=== PATIENT | male | born 1955 | race Caucasian/White ===

== ENCOUNTER 2017-06-01 21:29 | Emergency (ER) | payer MEDICAID ==
[2017-06-01 21:37] VITALS: BP 149/61
[2017-06-01] MEDS ORDERED: GuaiFENesin DM* 5 ML UDC PO ONE (21:54)
[2017-06-01] MEDS ORDERED: guaiFENesin LIQ* 100 MG/5 ML UDC PO ONE (22:00)
[2017-06-01] MEDS ORDERED: guaiFENesin LIQ* 100 MG/5 ML UDC ONE ×2 (22:02)
--- NOTE | 2017-06-01 22:07 | UC ---
Respiratory Complaint HPI - HPI Summary HPI Summary: 62 year old male with history of HTN here for cough for two weeks. Reports dry cough, worse when he is indoors. Reports runny nose as well but no sinus congestion or headache. Denies any fever, chills, sob. No leg swelling, prolonged immobilization. No prior symptoms like this before. - History of Current Complaint Chief Complaint: UCRespiratory Stated Complaint: COUGH Time Seen by Provider: 06/01/17 21:47 Onset/Duration: Gradual Onset Timing: Intermittent Episodes Severity Currently: Mild Character: Cough: Nonproductive Alleviating Factors: OTC Meds Associated Signs And Symptoms: Positive: Negative - Risk Factors Pulmonary Embolism Risk Factors: Negative Cardiac Risk Factors: Hypertension Pseudomonas Risk Factors: Negative - Allergies/Home Medications Allergies/Adverse Reactions: Allergies Allergy/AdvReac Type Severity Reaction Status Date / Time BEES Allergy Hives Uncoded 06/01/17 21:37 PMH/Surg Hx/FS Hx/Imm Hx - Surgical History Surgical History: None - Social History Alcohol Use: None Substance Use Type: None Smoking Status (MU): Former Smoker Review of Systems Constitutional: Negative Skin: Negative Eyes: Negative ENT: Nasal Discharge Respiratory: Cough Cardiovascular: Negative Gastrointestinal: Negative Genitourinary: Negative Motor: Negative Neurovascular: Negative Musculoskeletal: Negative Neurological: Negative Psychological: Negative All Other Systems Reviewed And Are Negative: Yes Physical Exam Triage Information Reviewed: Yes Appearance: Well-Appearing, No Pain Distress Vital Signs: Initial Vital Signs Temp 36.1 C 06/01/17 21:34 Pulse 67 06/01/17 21:34 Resp 12 06/01/17 21:34 BP 149/61 06/01/17 21:34 Pulse Ox 98 06/01/17 21:34 Eye Exam: Normal ENT Exam: Normal Dental Exam: Normal Neck exam: Normal Neck: Positive: 1 Respiratory Exam: Normal Respiratory: Positive: Chest non-tender, Lungs clear, Normal breath sounds, No respiratory distress, No accessory muscle use Cardiovascular Exam: Normal Cardiovascular: Positive: RRR Abdominal Exam: Normal Musculoskeletal Exam: Normal Neurological Exam: Normal Psychological Exam: Normal Skin Exam: Normal UC Diagnostic Evaluation - Laboratory O2 Sat by Pulse Oximetry: 98 Respiratory Course/Dx - Course Course Of Treatment: Cough. OTC meds given. - Differential Dx/Diagnosis Differential Diagnosis/HQI/PQRI: Bronchitis, Laryngitis, Lower Resp Infection, Sinusitis Provider Diagnoses: Cough Discharge - Discharge Plan Condition: Good Disposition: HOME Prescriptions: Dextromethorphan-Guaifenesin [Guaifenesin/Dextromethorp 10-100 mg/5Ml] 5 ml PO Q6HR PRN #1 bottle PRN Reason: Cough Patient Education Materials: Guaifenesin (By mouth), Viral Syndrome (ED) Print Language: CZECH Referrals: Non Staff,Doctor [Primary Care Provider] - Additional Instructions: Take meds as prescribed. Use humidifier at night.
== END 2017-06-01 22:10 | disposition home or self-care (01) ==
LOC: UCEAST 21:29
DX: R05 Cough (principal)
CPT/HCPCS: 99212; A9270-GY; G0463

== ENCOUNTER 2019-02-25 08:45 | Day surgery (SDC) | payer MEDICAID ==
[~2019-02-25 08:45] MED LIST: Buffered Lidocaine 1% SYRIN* 1 ML/SYRINGE INTRADERM ONE
[2019-02-25] MEDS ORDERED: fentaNYL* 50 MCG/ML 2 ML VIAL (100 MCG VIAL) ONE ×2 (09:32)
[2019-02-25] MEDS ORDERED: Midazolam* 1 MG/ML 2 ML VIAL (2 MG) ONE ×2 (09:32)
[2019-02-25 10:37] VITALS: BP 125/68
--- NOTE | 2019-02-25 10:47 | OP ---
DATE OF OPERATION: 02/25/19 [facility] DATE OF : 53 SURGEON: Dr. Enrique Bello. DOCUMENTATION BILLING CLERK: None. ANESTHESIA: Topical with intravenous sedation. PRE-OP DIAGNOSIS: Cataract, right eye. POST-OP DIAGNOSIS: Cataract, right eye. OPERATIVE PROCEDURE: Phacoemulsification and cataract extraction with posterior chamber intraocular lens implant, right eye. COMPLICATIONS: None. BLOOD LOSS: None. DESCRIPTION OF PROCEDURE: The patient was brought to the operating room and received a small amount of intravenous sedation. A drop of Tetracaine was placed in his right eye. He was prepped and draped in the usual sterile fashion for ophthalmic surgery and attention was directed to the right eye where a speculum was placed. A paracentesis was created at the 11 o'clock position and 0.1 cc of 1 percent preservative-free Lidocaine was injected into the anterior chamber followed by DisCoVisc. The eye was digitally stabilized while a 2.75 mm keratome was used to create a triplanar clear corneal incision at the 9 o'clock position. A continuous curvilinear capsulorrhexis was created with a cystotome and Utrata forceps. BSS on a cannula was used to hydrodissect the lens from the capsule. Phacoemulsification was performed in a divide-and- conquer technique to create four fragments which were removed. Residual cortical material was removed with irrigation and aspiration. DisCoVisc was used to inflate the capsular bag and an AU00T0 23.0 diopter lens was folded and inserted into the capsular bag. DisCoVisc was removed using irrigation and aspiration. BSS on a cannula was used to hydrate the corneal stroma and seal the wound. At the end of the case the pupil was round and the lens was centered. The eye was of normal pressure and the wound was water tight. The speculum was removed and topical Maxitrol ointment was placed on the surface of the eye. The eye was closed, patched and shielded and the patient was sent to the recovery room in stable condition with post operative instructions and follow-up appointment given. [id number]/[facility] #: [id number] MTDGlenda
[2019-02-25] MEDS ORDERED: Lidocaine 1% MPF ** 5 ML VIAL ONE ×2 (10:58)
[2019-02-25] MEDS ORDERED: Tetracaine 0.5% OPTH.SOL 4 ML* 1 DROP BTL ONE ×2 (10:58)
[2019-02-25] MEDS ORDERED: Neomycin/Polymy/Dex OPHTH.OIN* 3.5 GM ONE ×2 (10:58)
[2019-02-25] MEDS ORDERED: Phenylephrine OPHTH SOL 2.5%* 2 ML ONE ×2 (10:58)
[2019-02-25] MEDS ORDERED: Phenylephr/Ketorolac 1%/0.3% OPH DROP BTL ONE ×2 (10:58)
[2019-02-25] MEDS ORDERED: Tropicamide 1% OPTH.SOL* BTL ONE ×2 (10:58)
[2019-02-25] MEDS ORDERED: Ketorolac 0.5% OPHTH (NF) 0.5 % 5 ML BTL ONE ×2 (10:58)
[2019-02-25] MEDS ORDERED: Cyclopentolate 1% OPTH.SOL* 2 ML BTL ONE ×2 (10:58)
== END 2019-02-25 10:33 | disposition home or self-care (01) ==
LOC: OREAST 08:45
PROVIDERS: ATTEND Ophthalmology
DX: H25.11 Age-related nuclear cataract, right eye (principal); J30.2 Other seasonal allergic rhinitis; E78.00 Pure hypercholesterolemia, unspecified; I10 Essential (primary) hypertension; Z87.891 Personal history of nicotine dependence; E78.5 Hyperlipidemia, unspecified; F03.90 Unspecified dementia, unspecified severity, without behavioral disturbance, psychotic disturbance, mood disturbance, and anxiety; G40.89 Other seizures
CPT/HCPCS: A9270-GY; C9447; J2250; J3010; V2632

== ENCOUNTER 2019-03-04 09:22 | Day surgery (SDC) | payer MEDICAID ==
[~2019-03-04 09:22] MED LIST changes: +Acetaminophen TAB* 325 MG PO PRN; +Cyclopentolate 1% OPTH.SOL* 2 ML BTL ONE; +Ketorolac 0.5% OPHTH (NF) 0.5 % 5 ML BTL ONE; +Lidocaine 1% MPF ** 5 ML VIAL ONE; +Neomycin/Polymy/Dex OPHTH.OIN* 3.5 GM ONE; +Phenylephrine OPHTH SOL 2.5%* 2 ML ONE; +Tetracaine 0.5% OPTH.SOL 4 ML* 1 DROP BTL ONE; +Tropicamide 1% OPTH.SOL* BTL ONE
[2019-03-04] MEDS ORDERED: Midazolam* 1 MG/ML 2 ML VIAL (2 MG) ONE ×2 (10:33)
[2019-03-04] MEDS ORDERED: fentaNYL* 50 MCG/ML 2 ML VIAL (100 MCG VIAL) ONE (10:33)
[2019-03-04 11:08] VITALS: BP 124/67
[2019-03-04] MEDS ORDERED: Phenylephr/Ketorolac 1%/0.3% OPH DROP BTL ONE ×2 (11:12)
--- NOTE | 2019-03-04 11:26 | OP ---
OPERATIVE REPORT: DATE OF OPERATION: 03/04/19 - [facility] DATE OF : 53 SURGEON: Dr. Enrique Bello. CORPORATION OFFICER: None. ANESTHESIA: Topical with intravenous sedation. PRE-OP DIAGNOSIS: Cataract, left eye. POST-OP DIAGNOSIS: Cataract, left eye. OPERATIVE PROCEDURE: Phacoemulsification and cataract extraction with posterior chamber intraocular lens implant, left eye. COMPLICATIONS: None. BLOOD LOSS: None. OPERATIVE FINDINGS: The patient was brought to the operating room and received a small amount of intravenous sedation. A drop of Tetracaine was placed in his left eye. He was prepped and draped in the usual sterile fashion for ophthalmic surgery and attention was directed to the left eye where a speculum was placed. A paracentesis was created at the 5 o'clock position and 0.1 cc of 1 percent preservative-free Lidocaine was injected into the anterior chamber followed by DisCoVisc. The eye was digitally stabilized while a 2.75 mm keratome was used to create a triplanar clear corneal incision at the 3 o'clock position. A continuous curvilinear capsulorrhexis was created with a cystotome and Utrata forceps. BSS on a cannula was used to hydrodissect the lens from the capsule. Phacoemulsification was performed in a [id number] technique to create four fragments which were removed. Residual cortical material was removed with irrigation and aspiration. DisCoVisc was used to inflate the capsular bag and an AU00T0 23.0 diopter lens was folded and inserted into the capsular bag. DisCoVisc was removed using irrigation and aspiration. BSS on a cannula was used to hydrate the corneal stroma and seal the wound. At the end of the case the pupil was round and the lens was centered. The eye was of normal pressure and the wound was water tight. The speculum was removed and topical Maxitrol ointment was placed on the surface of the eye. The eye was closed, patched and shielded and the patient was sent to the recovery room in stable condition with post operative instructions and follow-up appointment given. [id number]/[facility] #: [id number] JENNIFER
== END 2019-03-04 11:15 | disposition home or self-care (01) ==
LOC: OREAST 09:22
PROVIDERS: ATTEND Ophthalmology
DX: H25.12 Age-related nuclear cataract, left eye (principal); I10 Essential (primary) hypertension; E78.00 Pure hypercholesterolemia, unspecified; E78.5 Hyperlipidemia, unspecified; Z87.891 Personal history of nicotine dependence; J30.89 Other allergic rhinitis
CPT/HCPCS: A9270-GY; C9447; J2250; J3010; V2632

== ENCOUNTER 2019-04-22 20:53 | Emergency (ER) | payer MEDICAID ==
[2019-04-22 21:03] VITALS: BP 155/73
--- NOTE | 2019-04-22 21:17 | UC ---
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 Patient denies noticing it this morning. States he worked on the [employer] line today and does not recall any injury or trauma to the area. Patient denies pain. Denies lightheaded or dizziness. Denies SOB and chest pain. Denies n/v, abdominal pain, or decreased appetite. Patient's cane flume feeding machine operator states an injury would have been known. Hydrodynamics Teacher also notes that patient was seen by primary doctor last week for right sided rib pain. Patient received xray which was read negative at the time and pain was attributed to coughing. They were then later called back and informed of concern for possible pneumonia and patient began z alberto this morning. - History of Current Complaint Chief Complaint: Richardson Stated Complaint: BRUISE RIGHT SIDE TORSO Hx Obtained From: Patient, Family/Hydrodynamics Teacher Pain Intensity: 0 - Allergy/Home Medications Allergies/Adverse Reactions: Allergies Allergy/AdvReac Type Severity Reaction Status Date / Time BEES Allergy Severe Hives Uncoded 04/22/19 21:05 Home Medications: Home Medications Azithromycin TAB* [Zithromax TAB (Z-ALBERTO) 250 mg #6 tabs] 250 mg PO DAILY [History Confirmed 04/22/19] PMH/Surg Hx/FS Hx/Imm Hx Cardiovascular History: Hypertension Neurological History: Dementia - Surgical History Surgical History: Yes Surgery Procedure, Year, and Place: umbilical hernia repair 2013 approx. tonsillectomy as a child. bilateral cataract. nasal septioplasty - Family History Known Family History: Positive: Unknown - Social History Alcohol Use: None Substance Use Type: None Smoking Status (MU): Former Smoker When Did the Patient Quit Smoking/Using Tobacco: 1999 Review of Systems All Other Systems Reviewed And Are Negative: Yes Constitutional: Positive: Negative. Negative: Fever, Chills Skin: Positive: Bruising ENT: Positive: Negative Respiratory: Positive: Cough. Negative: Shortness Of Breath Cardiovascular: Positive: Negative. Negative: Palpitations, Chest Pain Gastrointestinal: Positive: Negative. Negative: Abdominal Pain, Vomiting, Diarrhea, Nausea Musculoskeletal: Positive: Negative. Negative: Arthralgia Neurological: Positive: Negative Physical Exam Triage Information Reviewed: Yes Appearance: Well-Appearing, No Pain Distress, Well-Nourished Vital Signs: Initial Vital Signs Temp 98.7 F 04/22/19 20:59 Pulse 66 04/22/19 20:59 Resp 17 04/22/19 20:59 BP 155/73 04/22/19 20:59 Pulse Ox 97 04/22/19 20:59 Vital Signs Reviewed: Yes Eyes: Positive: Conjunctiva Clear ENT: Positive: Hearing grossly normal Neck: Positive: Supple Respiratory Exam: Normal Respiratory: Positive: Lungs clear, Normal breath sounds, No respiratory distress. Negative: Crackles, Rhonchi, Stridor, Wheezing Cardiovascular Exam: Normal Cardiovascular: Positive: RRR Abdomen Description: Positive: Nontender, Distended. Negative: Soft - firm abdomen Neurological: Positive: Alert Psychological: Positive: Age Appropriate Behavior Skin: Positive: Other - large area of petechiae and ecchymosis extending from below ribs flank area to anterior abdomen and above right hip. midline abdomen scar from prior hernia surgery. Course/Dx - Course Course Of Treatment: I instructed the patient and cane flume feeding machine operator to go straight to the emergency room for further lab work and imaging. Discussed patient with provider at [facility] and need for further imaging including CT to rule out trauma or internal bleeding. Patient VS normal and in no pain distress. Hydrodynamics Teacher and patient declined transport via ambulance. Patient and cane flume feeding machine operator voiced understanding and agreed to go straight to ED. Discussed patient with Dr. Fatima who also agreed to the plan. - Diagnoses Provider Diagnosis: Ecchymosis Discharge ED - Sign-Out/Discharge Documenting (check all that apply): Patient Departure All imaging exams completed and their final reports reviewed: No Studies - Discharge Plan Condition: Stable Disposition: HOME-RECOMMEND TO ED Referrals: Berlin Benson MD [Primary Care Provider] - Additional Instructions: The doctor that evaluated you today thinks that you need additional testing that can be completed the emergency department. It is recommended that you go directly to emergency department for further evaluation. This evaluation included blood work or imaging. This testing will be directed and decided by the provider that evaluates you at the emergency department. If pain becomes worse, you feel lightheaded, you have uncontrolled vomiting, or you have any other concerns while you are being driven to emergency department as recommended to pullover and contact 911. - Billing Disposition and Condition Condition: STABLE Disposition: Home-Recommend to ED
== END 2019-04-22 21:17 | disposition home health service (06) ==
LOC: UCCORT 20:53
DX: R58 Hemorrhage, not elsewhere classified (principal); I10 Essential (primary) hypertension; S30.1XXA Contusion of abdominal wall, initial encounter; Z91.030 Bee allergy status; Z87.891 Personal history of nicotine dependence; X58.XXXA Exposure to other specified factors, initial encounter; Y93.E1 Activity, personal bathing and showering; Y92.9 Unspecified place or not applicable
CPT/HCPCS: 99212; G0463

== ENCOUNTER 2019-05-04 09:45 | Emergency (ER) | payer MEDICAID ==
[2019-05-04 10:10] VITALS: BP 135/70
--- NOTE | 2019-05-04 10:47 | UC ---
Respiratory Complaint HPI - HPI Summary HPI Summary: 64 yo male with cough >2 weeks right sided ant cp and RUQ pain x weeks...worse with cough today noted BRB in stool has had diarrhea x 2 weeks 4-5 x day no fever no sob - History of Current Complaint Chief Complaint: UCAbdominalPain Stated Complaint: BLOODY STOOL Time Seen by Provider: 05/04/19 10:11 Hx Obtained From: Patient Onset/Duration: Gradual Onset, Lasting Days Timing: Constant Severity Initially: Severe Severity Currently: Severe Pain Intensity: 9 Pain Scale Used: 0-10 Numeric Character: Cough: Nonproductive Aggravating Factors: Nothing Alleviating Factors: Nothing Associated Signs And Symptoms: Negative: Dyspnea, Fever, Chills, Wheezing, Hemoptysis, Dizziness, Calf Pain, Calf Swelling, Edema, URI, Nasal Congestion, Hoarseness - Allergies/Home Medications Allergies/Adverse Reactions: Allergies Allergy/AdvReac Type Severity Reaction Status Date / Time BEES Allergy Severe Hives Uncoded 05/04/19 10:02 PMH/Surg Hx/FS Hx/Imm Hx Previously Healthy: Yes Endocrine History: Dyslipidemia Cardiovascular History: Hypertension - Surgical History Surgical History: Yes Surgery Procedure, Year, and Place: umbilical hernia repair 2014 approx. tonsillectomy as a child. bilateral cataract. nasal septioplasty - Family History Known Family History: Positive: Unknown - Social History Alcohol Use: None Substance Use Type: None Smoking Status (MU): Former Smoker When Did the Patient Quit Smoking/Using Tobacco: 1999 Review of Systems All Other Systems Reviewed And Are Negative: Yes Constitutional: Positive: Negative Skin: Positive: Negative Eyes: Positive: Negative ENT: Positive: Negative Respiratory: Positive: Cough Cardiovascular: Positive: Chest Pain Gastrointestinal: Positive: Abdominal Pain Neurovascular: Positive: Negative Musculoskeletal: Positive: Negative Neurological: Positive: Negative Psychological: Positive: Negative Physical Exam Triage Information Reviewed: Yes Appearance: Well-Appearing, No Pain Distress, Well-Nourished Vital Signs: Initial Vital Signs Temp 98.2 F 05/04/19 10:03 Pulse 69 05/04/19 10:03 Resp 16 05/04/19 10:03 BP 135/70 05/04/19 10:03 Pulse Ox 95 05/04/19 10:03 Vital Signs Reviewed: Yes Eyes: Positive: Conjunctiva Clear ENT: Positive: Hearing grossly normal. Negative: Nasal congestion, Nasal drainage, Tonsillar swelling, Tonsillar exudate, Dental tenderness Neck: Positive: Supple, Nontender, No Lymphadenopathy Respiratory: Positive: Lungs clear, Normal breath sounds, No respiratory distress. Negative: Chest non-tender Cardiovascular: Positive: RRR Abdomen Description: Negative: Nontender Bowel Sounds: Positive: Present Musculoskeletal: Positive: ROM Intact, No Edema Neurological: Positive: Alert Psychological Exam: Normal Skin Exam: Normal Diagnostics - Radiology No standard instances Radiology Interpretation Completed By: Radiologist Summary of Radiographic Findings: Bibasilar atelectasis Respiratory Course/Dx - Differential Dx/Diagnosis Provider Diagnosis: Bronchitis, Atelectasis of both lungs, Diarrhea Discharge ED - Sign-Out/Discharge Documenting (check all that apply): Patient Departure All imaging exams completed and their final reports reviewed: Yes - Discharge Plan Condition: Stable Disposition: HOME Patient Education Materials: Acute Bronchitis (ED), Acute Diarrhea (ED) Referrals: Berlin Benson MD [Primary Care Provider] - 4 Days Additional Instructions: if nothing turns up on the stool studies you may need a gi referral blood work pending - Billing Disposition and Condition Condition: STABLE Disposition: Home
[2019-05-04 13:20] LABS: ABS Basophils 0.1 10^3/ul (0-0.2); ABS Eosinophils 0.3 10^3/ul (0-0.6); ABS Lymphocytes 2.4 10^3/ul (1.0-4.8); ABS Monocytes 0.6 10^3/ul (0-0.8); ABS Neutrophils 7.6 10^3/ul (1.5-7.7); Eosinophil % 2.5 %; Hematocrit 46 % (42-52); Hemoglobin 15.9 g/dL (14.0-18.0); Lymphocyte % 21.9 %; Mean Corpuscular HGB Conc 35 g/dL (31-36); Mean Corpuscular Hemoglobin 29 pg (27-31); Mean Corpuscular Volume 85 fL (80-94); Mean Platelet Volume 8.3 fL (7.4-10.4); Nucleated Red Blood Cells % 0.1; Platelet Count 273 10^3/uL (150-450); Red Cell Distribution Width 14 % (10-15); White Blood Count 10.9 10^3/uL (3.5-10.8)
[2019-05-04 13:26] LABS: Albumin 4.6 g/dL (3.2-5.2); Calcium 9.5 mg/dL (8.6-10.3); Potassium 4.4 mmol/L (3.5-5.0); Total Bilirubin 0.5 mg/dL (0.2-1.0)
[2019-05-04 13:32] LABS: Albumin/Globulin Ratio 2.6 (1-3); BUN/Creatinine Ratio 13.9 (8-20); EGFR African American 119.1 (>60); EGFR Non-African American 98.4 (>60); Globulin 1.8 g/dL (2-4); Total Protein 6.4 g/dL (6.4-8.9)
--- NOTE | 2019-05-05 06:59 | UC ---
- Progress Note Progress Note: cbc with diff and cmp reviewed non concerning results no change elizabethj 05/05/19 Course/Dx - Diagnoses Provider Diagnoses: Bronchitis, Atelectasis of both lungs, Diarrhea Discharge ED - Sign-Out/Discharge Documenting (check all that apply): Post-Discharge Follow Up All imaging exams completed and their final reports reviewed: Yes - Discharge Plan Condition: Stable Disposition: HOME Prescriptions: DOXYcycline CAP(*) [DOXYcycline 100MG CAP(*)] 100 mg PO BID #14 cap Patient Education Materials: Acute Bronchitis (ED), Acute Diarrhea (ED) Referrals: Berlin Benson MD [Primary Care Provider] - 4 Days Additional Instructions: if nothing turns up on the stool studies you may need a gi referral blood work pending - Billing Disposition and Condition Condition: STABLE Disposition: Home
== END 2019-05-04 11:57 | disposition home or self-care (01) ==
LOC: UCEAST 09:45
DX: J40 Bronchitis, not specified as acute or chronic (principal); J98.11 Atelectasis; R19.7 Diarrhea, unspecified; R10.11 Right upper quadrant pain; Z91.030 Bee allergy status; Z87.891 Personal history of nicotine dependence
CPT/HCPCS: 36415; 71046; 80053; 85025; 87045; 87046; 87077; 87328; 87329; 87899; 99212; G0463